=== PATIENT | female | born 1965 | race Caucasian/White ===

== ENCOUNTER 2016-11-05 12:57 | Emergency (ER) | payer BC ==
[2016-11-05] MEDS ORDERED: NS 0.9% 1000 ML* 1,000 ML IV SCH (18:00)
[2016-11-05 18:26] LABS: Urine Bacteria 1+ (Absent); Urine Bilirubin Negative (Negative); Urine Glucose Negative (Negative); Urine Nitrite Negative (Negative)
[2016-11-05 18:34] LABS: Hematocrit 42 % (35-47); Mean Corpuscular HGB Conc 33 g/dl (31-36); Mean Corpuscular Hemoglobin 30 pg (27-31); Mean Corpuscular Volume 90 fL (80-97); Mean Platelet Volume 8 um3 (7.4-10.4); Red Cell Distribution Width 14 % (10.5-15); White Blood Count 8.5 10^3/ul (3.5-10.8)
[2016-11-05 18:52] LABS: Albumin 4.5 g/dL (3.2-5.2); BUN/Creatinine Ratio 18.8 (8-20); C Reactive Protein 2.05 mg/L (< 5.00); Calcium 9.3 mg/dL (8.6-10.3); EGFR African American 97.3 (>60); EGFR Non-African American 75.6 (>60); Globulin 2.7 g/dL (2-4); Potassium 3.5 mmol/L (3.5-5.0); Total Bilirubin 0.5 mg/dL (0.2-1.0); Total Protein 7.2 g/dL (6.4-8.9)
[2016-11-05] MEDS ORDERED: Iohexol 300* (CONTRAST) 10 ML SDV IV ONE (19:06)
--- NOTE | 2016-11-05 20:39 | RAD ---
INDICATION: Increased pain in the urinary bladder region. On antibiotics for urinary tract infection. COMPARISON: None. TECHNIQUE: Multidetector CT images were obtained from the lung bases to the ischial tuberosities with 88 mL Omnipaque 300 IV and oral contrast. Multiplanar reformation. REPORT: Unremarkable visualized inferior thorax. The liver, gallbladder, pancreas, and spleen are unremarkable. Negative for CT abnormality of the upper GI, small bowel, or appendix visualized extending posterior medial from the cecum most conspicuous on the coronal reformatted image. Unremarkable colon. Physiologic small volume of free pelvic fluid. Negative for free air or hernias. Symmetric nephrograms and pyelograms. Bilateral parapelvic renal cysts without concern. No suspicious focal renal lesions or hydronephrosis. Unremarkable nondilated ureters. Phlebolith noted adjacent to the distal RIGHT ureter. Unremarkable partially distended urinary bladder. Unremarkable anteverted uterus and adnexal regions. Negative for lymphadenopathy. Normal diameter abdominal aorta and iliac arteries. Physiologic distention of the IVC. Retrograde flow noted in prominent LEFT gonadal vein as well as opacification of prominent LEFT parametrial veins. Negative for suspicious osseous lesions. IMPRESSION: 1. Negative for obstructive uropathy or other stigmata of pyelonephritis. No CT abnormality of the partially distended urinary bladder. 2. Retrograde flow in the LEFT gonadal vein and prominent LEFT parametrial veins concerning for potential pelvic congestion syndrome.
[2016-11-05] MEDS ORDERED: Phenazopyridine TAB* 100 MG PO ONE ×2 (21:26→21:27)
--- NOTE | 2016-11-05 21:33 | ED ---
Roque Bush Karl, scribed for John Glez MD on 11/05/16 at 1755 . GI/ HPI - HPI Summary HPI Summary: Pt is a 51 y/o female that presents to the ED c/o of a possible UTI. Pt stated that 5 days ago she started having 5/10 suprapubic pain when her bladder is full and that she has the urgency to go with no pain during urination. Pt stated that her pain is mildly alleviated when she empties her bladder. Pt has been on abx Cipro for the past 4 days. Pt denied diarrhea, vaginal discharge, and any urogenital surgeries. Hx: similar episode/symptom May and early June 2016. - History of Current Complaint Chief Complaint: EDGeneral Time Seen by Provider: 11/05/16 17:46 Stated Complaint: bladder PAIN Hx Obtained From: Patient Onset/Duration: Started Days Ago, Atraumatic, Still Present Timing: Constant Severity: Moderate Current Severity: Moderate Pain Intensity: 5 - 0-10 numeric scale Location of Pain: Suprapubic Associated Signs and Symptoms: Negative: Discharge, Diarrhea, Dysuria Additional Signs & Symptoms: Negative: Vaginal Discharge Aggravating Factor(s): Nothing Alleviating Factor(s): Nothing - urinating - Allergy/Home Medications Allergies/Adverse Reactions: Allergies Allergy/AdvReac Type Severity Reaction Status Date / Time No Known Allergies Allergy Verified 08/19/15 09:53 PMH/Surg Hx/FS Hx/Imm Hx Endocrine/Hematology History: Denies: Hx Diabetes Cardiovascular History: Denies: Hx Hypertension, Hx Pacemaker/ICD Respiratory History: Denies: Hx Asthma History: Denies: Hx Renal Disease Sensory History: Denies: Hx Hearing Aid Psychiatric History: Denies: Hx Panic Disorder - Cancer History Cancer Type, Location and Year: skin surgically removed - Surgical History Surgery Procedure, Year, and Place: TONSILS, WISDOM TEETH; BENIGN SKIN LESION REMOVED FROM BACK 14YRS AGO Infectious Disease History: No Infectious Disease History: Denies: Traveled Outside the [place] in Last 30 Days - Family History Known Family History: Positive: Hypertension - Social History Alcohol Use: None Substance Use Type: Reports: None Smoking Status (MU): Never Smoked Tobacco Have You Smoked in the Last Year: No Review of Systems Constitutional: Negative Eyes: Negative ENT: Negative Cardiovascular: Negative Respiratory: Negative Positive: Abdominal Pain - suprapubic. Negative: Diarrhea Positive: urgency. Negative: dysuria, discharge Musculoskeletal: Negative Skin: Negative Neurological: Negative Psychological: Normal All Other Systems Reviewed And Are Negative: Yes Physical Exam Triage Information Reviewed: Yes Vital Signs On Initial Exam: Initial Vitals Temp Pulse Resp BP Pulse Ox 99.5 F 65 16 133/66 100 11/05/16 13:34 11/05/16 13:34 11/05/16 13:34 11/05/16 13:34 11/05/16 13:34 Vital Signs Reviewed: Yes Appearance: Positive: Well-Appearing, No Pain Distress Skin: Positive: Warm, Skin Color Reflects Adequate Perfusion, Dry Head/Face: Positive: Normal Head/Face Inspection Eyes: Positive: EOMI, HEMANT ENT: Positive: Normal ENT inspection Neck: Positive: Supple, Nontender Respiratory/Lung Sounds: Positive: Clear to Auscultation, Breath Sounds Present Cardiovascular: Positive: RRR Abdomen Description: Positive: Soft, Other: - mild tendness in the suprapubic area Bowel Sounds: Positive: Present Musculoskeletal: Positive: Normal, Strength/ROM Intact Neurological: Positive: Normal, Sensory/Motor Intact, Alert, Oriented to Person Place, Time Psychiatric: Positive: Affect/Mood Appropriate Diagnostics - Vital Signs Vital Signs Temp Pulse Resp BP Pulse Ox 11/05/16 13:34 99.5 F 65 16 133/66 100 - Laboratory Lab Results: Lab Results 11/05/16 11/05/16 11/05/16 Range/Units 17:50 18:20 18:20 WBC 8.5 (3.5-10.8) 10^3/ul RBC 4.70 (4.0-5.4) 10^6/ul Hgb 14.0 (12.0-16.0) g/dl Hct 42 (35-47) % MCV 90 (80-97) fL MCH 30 (27-31) pg MCHC 33 (31-36) g/dl RDW 14 (10.5-15) % Plt Count 144 L (150-450) 10^3/ul MPV 8 (7.4-10.4) um3 Neut % (Auto) 60.1 (38-83) % Lymph % (Auto) 30.1 (25-47) % Cuming % (Auto) 5.5 (1-9) % Eos % (Auto) 4.0 (0-6) % Baso % (Auto) 0.3 (0-2) % Absolute Neuts (auto) 5.1 (1.5-7.7) 10^3/ul Absolute Lymphs (auto) 2.6 (1.0-4.8) 10^3/ul Absolute Monos (auto) 0.5 (0-0.8) 10^3/ul Absolute Eos (auto) 0.3 (0-0.6) 10^3/ul Absolute Basos (auto) 0 (0-0.2) 10^3/ul Absolute Nucleated RBC 0.01 10^3/ul Nucleated RBC % 0.1 Sodium 138 (133-145) mmol/L Potassium 3.5 (3.5-5.0) mmol/L Chloride 108 (101-111) mmol/L Carbon Dioxide 24 (22-32) mmol/L Anion Gap 6 (2-11) mmol/L BUN 15 (6-24) mg/dL Creatinine 0.80 (0.51-0.95) mg/dL Est GFR ( Amer) 97.3 (>60) Est GFR (Non-Af Amer) 75.6 (>60) BUN/Creatinine Ratio 18.8 (8-20) Glucose 88 (70-100) mg/dL Lactic Acid (0.5-2.0) mmol/L Calcium 9.3 (8.6-10.3) mg/dL Total Bilirubin 0.50 (0.2-1.0) mg/dL AST 15 (13-39) U/L ALT 15 (7-52) U/L Alkaline Phosphatase 49 (34-104) U/L C-Reactive Protein 2.05 (< 5.00) mg/L Total Protein 7.2 (6.4-8.9) g/dL Albumin 4.5 (3.2-5.2) g/dL Globulin 2.7 (2-4) g/dL Albumin/Globulin Ratio 1.7 (1-3) Lipase 32 (11.0-82.0) U/L Urine Color Yellow Urine Appearance Cloudy Urine pH 6.0 (5-9) Ur Specific [place] 1.008 L (1.010-1.030) Urine Protein Negative (Negative) Urine Ketones Trace H (Negative) Urine Blood Negative (Negative) Urine Nitrate Negative (Negative) Urine Bilirubin Negative (Negative) Urine Urobilinogen Negative (Negative) Ur Leukocyte Esterase 1+ H (Negative) Urine WBC (Auto) Trace(0-5/hpf) (Absent) Urine RBC (Auto) Trace(0-2/hpf) (Absent) Ur Squamous Epith Cells Present H (Absent) Urine Bacteria 1+ H (Absent) Urine Glucose Negative (Negative) 11/05/16 Range/Units 18:20 WBC (3.5-10.8) 10^3/ul RBC (4.0-5.4) 10^6/ul Hgb (12.0-16.0) g/dl Hct (35-47) % MCV (80-97) fL MCH (27-31) pg MCHC (31-36) g/dl RDW (10.5-15) % Plt Count (150-450) 10^3/ul MPV (7.4-10.4) um3 Neut % (Auto) (38-83) % Lymph % (Auto) (25-47) % [place] % (Auto) (1-9) % Eos % (Auto) (0-6) % Baso % (Auto) (0-2) % Absolute Neuts (auto) (1.5-7.7) 10^3/ul Absolute Lymphs (auto) (1.0-4.8) 10^3/ul Absolute Monos (auto) (0-0.8) 10^3/ul Absolute Eos (auto) (0-0.6) 10^3/ul Absolute Basos (auto) (0-0.2) 10^3/ul Absolute Nucleated RBC 10^3/ul Nucleated RBC % Sodium (133-145) mmol/L Potassium (3.5-5.0) mmol/L Chloride (101-111) mmol/L Carbon Dioxide (22-32) mmol/L Anion Gap (2-11) mmol/L BUN (6-24) mg/dL Creatinine (0.51-0.95) mg/dL Est GFR ( Amer) (>60) Est GFR (Non-Af Amer) (>60) BUN/Creatinine Ratio (8-20) Glucose (70-100) mg/dL Lactic Acid 0.6 (0.5-2.0) mmol/L Calcium (8.6-10.3) mg/dL Total Bilirubin (0.2-1.0) mg/dL AST (13-39) U/L ALT (7-52) U/L Alkaline Phosphatase (34-104) U/L C-Reactive Protein (< 5.00) mg/L Total Protein (6.4-8.9) g/dL Albumin (3.2-5.2) g/dL Globulin (2-4) g/dL Albumin/Globulin Ratio (1-3) Lipase (11.0-82.0) U/L Urine Color Urine Appearance Urine pH (5-9) Ur Specific [place] (1.010-1.030) Urine Protein (Negative) Urine Ketones (Negative) Urine Blood (Negative) Urine Nitrate (Negative) Urine Bilirubin (Negative) Urine Urobilinogen (Negative) Ur Leukocyte Esterase (Negative) Urine WBC (Auto) (Absent) Urine RBC (Auto) (Absent) Ur Squamous Epith Cells (Absent) Urine Bacteria (Absent) Urine Glucose (Negative) Result Diagrams: 11/05/16 18:20 11/05/16 18:20 Lab Statement: Any lab studies that have been ordered have been reviewed, and results considered in the medical decision making process. - CT CT Abd/Pelvis w/ [CT] CT Interpretation: Positive (See Comments) CT Interpretation Completed By: Radiologist - IMPRESSION: 1. Negative for obstructive uropathy or other stigmata of pyelonephritis. No CT abnormality of the partially distended urinary bladder. 2. Retrograde flow in the LEFT gonadal vein and prominent LEFT parametrial veins concerning for potential pelvic congestion syndrome. GIGU Course/Dx - Course Assessment/Plan: DISCUSSED RESULTS WITH PATIENT/. NO SIGNS OF INFECTION. RX PYRIDIUM AND F/U WITH PMD. DDX INCLUDES INTERSITIAL CYSTITIS. PELVIC CONGESTION MAY OR MAY NOT BE CAUSING PAIN. BOTH THESE CONDITIONS DICUSSED WITH PATIENT/. WILL RETURN TO ED IF WORSE. - Diagnoses Provider Diagnoses: Abdominal pain, Dysuria Discharge - Discharge Plan Condition: Stable Disposition: HOME Prescriptions: Phenazopyridine TAB* [Pyridium TAB*] 200 mdi PO TID PRN #20 tab PRN Reason: Pain Patient Education Materials: Abdominal Pain (ED), Dysuria (ED) Referrals: Jose Luis Simmons MD [Primary Care Provider] - Additional Instructions: FOLLOW UP WITH YOUR DOCTOR. TAKE PYRIDIUM DIRECTED NEEDED. RETURN TO THE EMERGENCY DEPARTMENT FOR ANY WORSENING OF YOUR CONDITION; PAIN, FEVER, YOU FEEL ILL OR QUESTIONS OR CONCERNS. The documentation as recorded by the Roque flores Karl accurately reflects the service I personally performed and the decisions made by me, John Glez MD.
[2016-11-05 22:03] VITALS: BP 118/72
== END 2016-11-05 22:02 | disposition home or self-care (01) ==
LOC: ED 12:57
DX: R10.30 Lower abdominal pain, unspecified (principal); R30.0 Dysuria
CPT/HCPCS: 36415; 74177; 80053; 81003; 81015; 83605; 83690; 85025; 86140; 87086; 99282; A9270-GY; Q9967

== ENCOUNTER 2017-03-20 18:08 | Emergency (ER) | payer BC ==
[2017-03-20 18:16] VITALS: BP 102/65
--- NOTE | 2017-03-20 18:47 | UC ---
General HPI - HPI Summary HPI Summary: 1 WEEK OF WORSENING FATIGUE. STATES IT IS SO BAD SHE IS UNABLE TO CARRY OUT HER DAILY ACTIVITIES. ALSO IS C/O FONTENOT AND KNEE PAIN. IS WORRIED ABOUT LYME DISEASE. PULLED A TICK OFF HER LEG 2 WEEKS AGO. NOT SURE HOW LONG IT WAS ATTACHED. TICK WAS ENGORGED. DENIES ANY RASH. NO FEVER. - History of Current Complaint Chief Complaint: UCSkin Stated Complaint: TICK BITES Time Seen by Provider: 03/20/17 18:24 Hx Obtained From: Patient, Family/Heavy Equipment Diesel Mechanic - Onset/Duration: Gradual Onset, Lasting Days, Still Present Timing: Constant Onset Severity: Moderate Current Severity: Moderate Pain Intensity: 8 Pain Location at: KNEES Associated Signs & Symptoms: Positive: Headache, Other - FATIGUE, ACHY - Allergy/Home Medications Allergies/Adverse Reactions: Allergies Allergy/AdvReac Type Severity Reaction Status Date / Time No Known Allergies Allergy Verified 08/19/15 09:53 PMH/Surg Hx/FS Hx/Imm Hx Endocrine History: Hypothyroidism Neurological History: Migraine - Surgical History Surgical History: Yes Surgery Procedure, Year, and Place: TONSILS, WISDOM TEETH; BENIGN SKIN LESION REMOVED FROM BACK 14YRS AGO - Family History Known Family History: Positive: Hypertension, Diabetes - Social History Alcohol Use: None Substance Use Type: None Smoking Status (MU): Never Smoked Tobacco Have You Smoked in the Last Year: No Review of Systems Constitutional: Fatigue Skin: Negative Respiratory: Negative Cardiovascular: Negative Gastrointestinal: Negative Musculoskeletal: Arthralgia, Myalgia Neurological: Headache All Other Systems Reviewed And Are Negative: Yes Physical Exam Triage Information Reviewed: Yes Appearance: Well-Appearing, No Pain Distress, Well-Nourished Vital Signs: Initial Vital Signs Temp 98.9 F 03/20/17 18:12 Pulse 63 03/20/17 18:12 Resp 18 03/20/17 18:12 BP 102/65 03/20/17 18:12 Pulse Ox 100 03/20/17 18:12 Vital Signs Reviewed: Yes Eyes: Positive: Conjunctiva Clear ENT: Positive: Hearing grossly normal, Pharynx normal, TMs normal Neck: Positive: Supple, Nontender, No Lymphadenopathy Respiratory Exam: Normal Cardiovascular Exam: Normal Abdomen Description: Positive: Soft Musculoskeletal: Positive: No Edema Neurological: Positive: Alert Psychological: Positive: Age Appropriate Behavior Skin: Negative: rashes Course/Dx - Course Course Of Treatment: PT VERY CONCERNED ABOUT LYME DISEASE. WILL CHECK LYME SEROLOGY, CBC, CMP AND TSH. - Differential Dx - Multi-Symptom Provider Diagnoses: FATIGUE, NOS Discharge - Discharge Plan Condition: Stable Disposition: HOME Patient Education Materials: Fatigue (ED) Referrals: Jose Luis Simmons MD [Primary Care Provider] - 2 Weeks Additional Instructions: YOUR SYMPTOMS MAY OR MAY NOT BE DUE TO LYME DISEASE. WILL CHECK LYME SEROLOGY TODAY AND ALSO BLOOD COUNT, METABOLIC PANEL AND THYROID TO RULE OUT OTHER POSSIBLE ETIOLOGIES OF YOUR FATIGUE. BE SURE TO STAY WELL HYDRATED. FOLLOW-UP WITH DR. SIMMONS.
[2017-03-21 10:35] LABS: Hematocrit 43 % (35-47); Mean Corpuscular HGB Conc 33 g/dl (31-36); Mean Corpuscular Hemoglobin 30 pg (27-31); Mean Corpuscular Volume 92 fL (80-97); Mean Platelet Volume 9 um3 (7.4-10.4); Red Blood Count 4.69 10^6/ul (4.0-5.4); Red Cell Distribution Width 14 % (10.5-15); White Blood Count 6.8 10^3/ul (3.5-10.8)
[2017-03-21 10:56] LABS: TSH (Thyroid Stimulating Horm) 0.58 mcIU/mL (0.34-5.60)
[2017-03-21 12:38] LABS: Albumin 4.1 g/dL (3.2-5.2); Calcium 9.3 mg/dL (8.6-10.3); EGFR African American 104.8 (>60); EGFR Non-African American 81.5 (>60); Globulin 2.5 g/dL (2-4); Potassium 3.9 mmol/L (3.5-5.0); Total Bilirubin 0.4 mg/dL (0.2-1.0); Total Protein 6.6 g/dL (6.4-8.9)
== END 2017-03-20 19:06 | disposition home or self-care (01) ==
LOC: UCEAST 18:08
DX: R53.83 Other fatigue (principal); E03.9 Hypothyroidism, unspecified
CPT/HCPCS: 36415; 80053; 84443; 85025; 86618; 99211; G0463

== ENCOUNTER 2017-10-18 15:29 | Emergency (ER) | payer BC | END 2017-10-18 15:44 | disposition left against medical advice (07) | LOC: UCCORT 15:29 | DX: K59.00 Constipation, unspecified (principal); Z53.21 Procedure and treatment not carried out due to patient leaving prior to being seen by health care provider ==